=== PATIENT | male | born 1970 | race Two or more races ===

== ENCOUNTER 2018-02-28 23:03 | Emergency (ER) | payer SELFPAY ==
[2018-03-01] MEDS ORDERED: CIPROFLOXACIN HCL/DEXAMETH OTIC DROP 7.5 ML AU ONE (01:13)
--- NOTE | 2018-03-01 01:39 | RADIOLOGY REPORT (SQ) ---
EXAM DESCRIPTION: XR CHEST 2 VIEWS COMPLETED DATE/TME: 03/01/2018 01:07 CLINICAL HISTORY: shortness of breath COMPARISON: 04/21/2016 FINDINGS: Frontal and lateral views of the chest. Tortuosity of the thoracic aorta. Heart is not enlarged. No consolidation, pneumothorax, or pleural effusion. Degenerative change of the spine. Upper abdominal soft tissues are unremarkable. IMPRESSION: 1. No acute pulmonary process identified.
--- NOTE | 2018-03-01 02:23 | ER Document Report ---
ED ENT - General Chief Complaint: Ear Pain Stated Complaint: SHORTNESS OF BREATH Time Seen by Provider: 03/01/18 00:32 Mode of Arrival: Ambulatory Information source: Patient Notes: Patient presents to emergency department with chief complaint of left ear pain and shortness of breath. Patient reports that the left ear pain has been ongoing for approximately 2 days, patient reports that he has been in a swimming pool lately. Patient reports that the shortness of breath is intermittent, denies any cough or fever. TRAVEL OUTSIDE OF THE [place] IN LAST 30 DAYS: No - Related Data Allergies/Adverse Reactions: Penicillins Allergy (Verified 04/28/16 03:14) ibuprofen Adverse Reaction (Verified 04/21/16 10:24) Past Medical History - General Information source: Patient - Social History Smoking Status: Current Every Day Smoker Frequency of alcohol use: None Drug Abuse: None Family History: Arthritis, CAD, CVA, DM, Hyperlipidemia, Hypertension, Malignancy, Other - Lymphoma and his mother who is Patient has suicidal ideation: No Patient has homicidal ideation: No - Past Medical History Cardiac Medical History: Denies: Hx Congestive Heart Failure, Hx Coronary Artery Disease, Hx DVT, Hx Heart Attack, Hx Hypercholesterolemia, Hx Hypertension, Hx Pulmonary Embolism Renal/ Medical History: Denies: Hx Peritoneal Dialysis GI Medical History: Denies: Hx Cirrhosis, Hx Gastroesophageal Reflux Disease, Hx Hepatitis Musculoskeletal Medical History: Reports Hx Arthritis Psychiatric Medical History: Denies: Hx Depression Infectious Medical History: Denies: Hx Hepatitis Past Surgical History: Reports: Hx Gastric Bypass Surgery, Hx Orthopedic Surgery - Surgery to right wrist for gangrene infection., Hx Vascular Surgery - surgery to remove a IV - Immunizations Hx Diphtheria, Pertussis, Tetanus Vaccination: Yes - 2015 according to patient Review of Systems - Review of Systems Constitutional: No symptoms reported EENT: See HPI Cardiovascular: No symptoms reported Respiratory: See HPI Gastrointestinal: No symptoms reported Genitourinary: No symptoms reported Male Genitourinary: No symptoms reported Musculoskeletal: No symptoms reported Skin: No symptoms reported Hematologic/Lymphatic: No symptoms reported Neurological/Psychological: No symptoms reported Physical Exam - Vital signs Vitals: Temp Pulse Resp BP Pulse Ox 98.6 F 69 18 130/87 H 97 02/28/18 23:35 02/28/18 23:35 02/28/18 23:35 02/28/18 23:35 02/28/18 23:35 - Notes Notes: PHYSICAL EXAMINATION: GENERAL: Well-appearing, well-nourished and in no acute distress. HEAD: Atraumatic, normocephalic. EYES: Pupils equal round and reactive to light, extraocular movements intact, sclera anicteric, conjunctiva are normal. ENT: Nares patent, oropharynx clear without exudates. Moist mucous membranes. Erythema and swelling noted to left ear canal, mild erythema to right ear canal. NECK: Normal range of motion, supple without lymphadenopathy LUNGS: Breath sounds clear to auscultation bilaterally and equal. No wheezes rales or rhonchi. HEART: Regular rate and rhythm without murmurs Musculoskeletal: Normal range of motion, no pitting or edema. No cyanosis. NEUROLOGICAL: Cranial nerves grossly intact. Normal speech, normal gait. Normal sensory, motor exams PSYCH: Normal mood, normal affect. SKIN: Warm, Dry, normal turgor, no rashes or lesions noted. Course - Re-evaluation Re-evalutation: Patient with complaint of left ear pain and intermittent shortness of breath. Patient's vital signs are stable. Patient physical exam is unremarkable other than erythema and edema to left ear canal with mild erythema to right ear canal. Patient denies any other complaints. Chest x-ray is unremarkable. Will discharge patient on Ciprodex for otitis externa. - Vital Signs Vital signs: Temp Pulse Resp BP Pulse Ox 98.6 F 69 18 130/87 H 97 02/28/18 23:35 02/28/18 23:35 02/28/18 23:35 02/28/18 23:35 02/28/18 23:35 Discharge - Discharge Clinical Impression: Otitis externa Qualifiers: Otitis externa type: unspecified type Chronicity: acute Laterality: left Qualified Code(s): H60.502 - Unspecified acute noninfective otitis externa, left ear Condition: Stable Disposition: HOME, SELF-CARE Additional Instructions: OTITIS EXTERNA: You have otitis externa -- an infection of the outer ear canal. This can be very painful. It's sometimes called "swimmer's ear," because it often occurs after prolonged water exposure. Many things, such as earwax and dirt in the ear, can contribute to it. The usual treatment is antibiotic/antiinflammatory ear drops. Occasionally , a wick will be placed in the ear to draw in the medicine. If the infection is severe, an oral antibiotic may be prescribed. Pain medication is often needed. Avoid getting water in the ear. Outer ear infections often take longer to heal than you might expect. Some tenderness and ache in the ear may persist for about two weeks. See your physician if you fail to improve as expected. Call the doctor at once if you develop fever, increasing swelling (particularly if it makes your ear "poke out"), severe headache, stiff neck, or decreased hearing. USE OF EAR DROPS: Your ear drops won't do much good if they don't get all the way in. To help the ear drops penetrate all the way to the ear drum, use the following technique. If you encounter problems of any kind, notify the physician. (1) Lay your head sideways on a pillow. (2) Place the dropper tip just barely inside the ear canal, almost touching the bottom side of the canal. The liquid is tolerated better on the bottom of the canal. (3) Squeeze out the appropriate amount of medicine, and remove the dropper. (4) Grab the back of the ear (just behind the ear canal) between your index finger and thumb. (5) Tug up, then let the ear drop back. Repeat several times. This pumps the medicine down. (6) Wait five minutes, then place a cotton ball in the ear canal to catch and hold the medicine. CIPROFLOXACIN: You have been given an antibacterial agent, ciprofloxacin (Cipro). This medicine is not related to the penicillins, sulfas, cephalosporins, or tetracyclines. It is often given to patients who are allergic to these drugs. It has been chosen for you either because other drugs are not appropriate, or because of the nature of your problem. Cipro should not be taken with antacids, as these can decrease its effectiveness. It can be taken without regard to meals. Although Cipro is usually well-tolerated, common side effects can include nausea and diarrhea. Contact your doctor if you experience any unusual symptoms while on this medication, such as joint pain or swelling, shortness of breath, wheezing, faintness, or hives. FOLLOW-UP CARE: If you have been referred to a physician for follow-up care, call the physician s office for an appointment as you were instructed or within the next two days. If you experience worsening or a significant change in your symptoms, notify the physician immediately or return to the Emergency Department at any time for re-evaluation. Referrals: [facility] [Provider Group] - Follow up as needed
[2018-03-01 03:36] LABS: ABSOLUTE BASOPHILS # (AUTO) 0.1 10^3/uL (0.0-0.2); ABSOLUTE EOSINOPHILS # (AUTO) 0.5 10^3/uL (0.0-0.6); ABSOLUTE LYMPHOCYTES (AUTO) 2.7 10^3/uL (0.5-4.7); ABSOLUTE MONOCYTES (AUTO) 0.7 10^3/uL (0.1-1.4); BASOPHILS % (AUTO) 1.1 % (0-2); EOSINOPHILS % (AUTO) 6.6 % (0-6); HEMATOCRIT 39.4 % (37.9-51.0); LYMPHOCYTES % (AUTO) 38.8 % (13-45); MEAN CORPUSCULAR HEMOGLOBIN 28.2 pg (27.0-33.4); MEAN CORPUSCULAR VOLUME 85 fl (80-97); MONOCYTES % (AUTO) 10.2 % (3-13); PLATELET COUNT 299 10^3/uL (150-450); RED BLOOD COUNT 4.61 10^6/uL (4.35-5.55); RED CELL DISTRIBUTION WIDTH 16.1 % (11.5-14.0); SEGMENTED NEUTROPHILS % (AUTO) 43.3 % (42-78); TOTAL CELLS COUNTED % (AUTO) 100 %; WHITE BLOOD COUNT 6.9 10^3/uL (4.0-10.5)
[2018-03-01 03:45] LABS: APPEARANCE,URINE CLEAR; BILIRUBIN,URINE NEGATIVE (NEGATIVE); COLOR,URINE YELLOW; GLUCOSE, URINE NEGATIVE (NEGATIVE); KETONES,URINE 20 mg/dL (NEGATIVE); LEUKOCYTE ESTERASE,URINE NEGATIVE (NEGATIVE); NITRITE,URINE NEGATIVE (NEGATIVE); PROTEIN,URINE NEGATIVE (NEGATIVE); URINE SPECIFIC GRAVITY 1.023
[2018-03-01 03:46] LABS: ALANINE AMINOTRANSFERASE 31 U/L (21-72); ALBUMIN 3.7 g/dL (3.5-5.0); ALKALINE PHOSPHATASE 44 U/L (38-126); ANION GAP 12 (5-19); ASPARTATE AMINO TRANSFERASE 30 U/L (17-59); BILIRUBIN,DIRECT 0.3 mg/dL (0.0-0.4); BILIRUBIN,TOTAL 0.8 mg/dL (0.2-1.3); BLOOD UREA NITROGEN 13 mg/dL (7-20); CARBON DIOXIDE 26 mmol/L (22-30); CHLORIDE 104 mmol/L (98-107); GLUCOSE 91 mg/dL (75-110); POTASSIUM 3.5 mmol/L (3.6-5.0); SODIUM 142.4 mmol/L (137-145); TOTAL PROTEIN 6.5 g/dL (6.3-8.2)
[2018-03-01 03:47] LABS: ACETAMINOPHEN < 10 ug/mL (10-30); ALCOHOL < 10 mg/dL (NONE DETECTED); SALICYLATE < 1.0 mg/dL (2.0-20.0)
--- NOTE | 2018-03-01 04:21 | ER Document Report ---
ED Psych Disorder / Suicide - General Mode of Arrival: Ambulatory TRAVEL OUTSIDE OF THE [place] IN LAST 30 DAYS: No <BUBBA LLANES - Last Filed: 03/01/18 07:02> <HELEN SUTTON - Last Filed: 03/01/18 17:52> - General Chief Complaint: Suicidal Ideation Stated Complaint: SHORTNESS OF BREATH Time Seen by Provider: 03/01/18 00:32 Notes: Patient is a 47-year-old male who presents to the emergency department immediately after being discharged with complaints of suicidal ideations. Patient had checked into our department and was seen for left ear pain and shortness of breath. Patient was discharged with a diagnosis of otitis externa. On discharge patient appeared very unhappy that he was being sent home , began raising his voice and shouting out at the nurse that if we sent him home he was going to kill himself. During initial visit and examination patient made no reference to any psychiatric complaints and in fact denied any additional complaints when specifically asked. (BUBBA LLANES) - Related Data Allergies/Adverse Reactions: Penicillins Allergy (Verified 04/28/16 03:14) ibuprofen Adverse Reaction (Verified 04/21/16 10:24) Past Medical History - General Information source: Patient - Social History Smoking Status: Current Every Day Smoker Frequency of alcohol use: None Drug Abuse: None Family History: Arthritis, CAD, CVA, DM, Hyperlipidemia, Hypertension, Malignancy, Other - Lymphoma and his mother who is Patient has suicidal ideation: No Patient has homicidal ideation: No - Past Medical History Cardiac Medical History: Denies: Hx Congestive Heart Failure, Hx Coronary Artery Disease, Hx DVT, Hx Heart Attack, Hx Hypercholesterolemia, Hx Hypertension, Hx Pulmonary Embolism Renal/ Medical History: Denies: Hx Peritoneal Dialysis GI Medical History: Denies: Hx Cirrhosis, Hx Gastroesophageal Reflux Disease, Hx Hepatitis Musculoskeletal Medical History: Reports Hx Arthritis Psychiatric Medical History: Denies: Hx Depression Infectious Medical History: Denies: Hx Hepatitis Past Surgical History: Reports: Hx Gastric Bypass Surgery, Hx Orthopedic Surgery - Surgery to right wrist for gangrene infection., Hx Vascular Surgery - surgery to remove a IV - Immunizations Hx Diphtheria, Pertussis, Tetanus Vaccination: Yes - 2015 according to patient <BUBBA LLANES - Last Filed: 03/01/18 07:02> Review of Systems - Review of Systems Constitutional: No symptoms reported EENT: See HPI Cardiovascular: No symptoms reported Respiratory: No symptoms reported Gastrointestinal: No symptoms reported Genitourinary: No symptoms reported Male Genitourinary: No symptoms reported Musculoskeletal: No symptoms reported Skin: No symptoms reported Hematologic/Lymphatic: No symptoms reported Neurological/Psychological: See HPI <BUBBA LLANES - Last Filed: 03/01/18 07:02> Physical Exam <BUBBA LLANES - Last Filed: 03/01/18 07:02> <HELEN SUTTON - Last Filed: 03/01/18 17:52> - Vital signs Vitals: Temp Pulse Resp BP Pulse Ox 98.6 F 69 18 130/87 H 97 02/28/18 23:35 02/28/18 23:35 02/28/18 23:35 02/28/18 23:35 02/28/18 23:35 - Notes Notes: PHYSICAL EXAMINATION: GENERAL: Well-appearing, well-nourished and in no acute distress. HEAD: Atraumatic, normocephalic. EYES: Pupils equal round and reactive to light, extraocular movements intact, sclera anicteric, conjunctiva are normal. ENT: Nares patent, oropharynx clear without exudates. Moist mucous membranes. Erythema and swelling noted to left ear canal, mild erythema to right ear canal. NECK: Normal range of motion, supple without lymphadenopathy LUNGS: Breath sounds clear to auscultation bilaterally and equal. No wheezes rales or rhonchi. HEART: Regular rate and rhythm without murmurs Musculoskeletal: Normal range of motion, no pitting or edema. No cyanosis. NEUROLOGICAL: Cranial nerves grossly intact. Normal speech, normal gait. Normal sensory, motor exams PSYCH: Normal mood, normal affect, calm and cooperative. SKIN: Warm, Dry, normal turgor, no rashes or lesions noted. (BUBBA LLANES) Course - Laboratory Result Diagrams: 03/01/18 03:06 03/01/18 03:06 <BUBBA LLANES - Last Filed: 03/01/18 07:02> - Laboratory Result Diagrams: 03/01/18 03:06 03/01/18 03:06 <HELEN SUTTON - Last Filed: 03/01/18 17:52> - Re-evaluation Re-evalutation: Patient decided to check back in to be seen for his suicidal ideations. Patient was yelling out in the lobby "my blood will be on your hands" as provider and charge nurse and were talking to him about his new complaint of suicidal ideations. Patient was just discharged in stable condition with a left otitis externa is no mention of any psychiatric complaints. Upon arrival to room 44, patient initially screamed angrily at the charge nurse, then proceeded to ask for something to eat by his primary nurse and did cooperate in allowing for blood in urine for the psychiatric workup. On reevaluation of patient, patient is resting in room 44 with eyes closed and snoring respirations. Patient awoken to ask some more specific questions on his psychiatric complaint tonight in which patient denies any homicidal ideations, reports suicidal thoughts, when asked if he has a plan patient states "no nothing like that I just have a lot of stress going on". Patient then rolled back over to go to sleep. Patient continues to rest with no distress noted. All labs are back unremarkable for any acute pathology. Patient is medically cleared at this time , will be seen by psychiatric provider this morning. (BUBBA LLANES) - Vital Signs Vital signs: Temp Pulse Resp BP Pulse Ox 98.1 F 56 L 16 119/73 100 03/01/18 10:19 03/01/18 10:19 03/01/18 10:19 03/01/18 10:19 03/01/18 10:19 - Laboratory Laboratory results interpreted by me: 03/01/18 03/01/18 03/01/18 03:06 03:06 03:06 Hgb 13.0 L RDW 16.1 H Eosinophils % 6.6 H Potassium 3.5 L Urine Ketones 20 H Urine Urobilinogen 4.0 H Salicylates < 1.0 L Acetaminophen < 10 L Discharge <BUBBA LLANES - Last Filed: 03/01/18 07:02> <HELEN SUTTON - Last Filed: 03/01/18 17:52> - Discharge Clinical Impression: Resolved suicidal ideation Otitis externa Qualifiers: Otitis externa type: unspecified type Chronicity: acute Laterality: left Qualified Code(s): H60.502 - Unspecified acute noninfective otitis externa, left ear Condition: Stable Disposition: HOME, SELF-CARE Additional Instructions: Suicidal Ideation Suicidal ideation is a common medical term for thoughts about suicide, which may be as detailed as a formulated plan, without the suicidal act itself. Although most people who undergo suicidal ideation do not commit suicide, some go on to make suicide attempts. The range of suicidal ideation varies greatly from fleeting to detailed planning, role playing, and unsuccessful attempts. While thoughts about suicide are common, most people do not carry out serious actions to commit suicide. However, based upon your evalutation and discussion with you, we believe you are currently at risk to act upon your thoughts of suicide. Therefore, you will be admitted to a facility for inpatient care. OTITIS EXTERNA: You have otitis externa -- an infection of the outer ear canal. This can be very painful. It's sometimes called "swimmer's ear," because it often occurs after prolonged water exposure. Many things, such as earwax and dirt in the ear, can contribute to it. The usual treatment is antibiotic/antiinflammatory ear drops. Occasionally , a wick will be placed in the ear to draw in the medicine. If the infection is severe, an oral antibiotic may be prescribed. Pain medication is often needed. Avoid getting water in the ear. Outer ear infections often take longer to heal than you might expect. Some tenderness and ache in the ear may persist for about two weeks. See your physician if you fail to improve as expected. Call the doctor at once if you develop fever, increasing swelling (particularly if it makes your ear "poke out"), severe headache, stiff neck, or decreased hearing. USE OF EAR DROPS: Your ear drops won't do much good if they don't get all the way in. To help the ear drops penetrate all the way to the ear drum, use the following technique. If you encounter problems of any kind, notify the physician. (1) Lay your head sideways on a pillow. (2) Place the dropper tip just barely inside the ear canal, almost touching the bottom side of the canal. The liquid is tolerated better on the bottom of the canal. (3) Squeeze out the appropriate amount of medicine, and remove the dropper. (4) Grab the back of the ear (just behind the ear canal) between your index finger and thumb. (5) Tug up, then let the ear drop back. Repeat several times. This pumps the medicine down. (6) Wait five minutes, then place a cotton ball in the ear canal to catch and hold the medicine. CIPROFLOXACIN: You have been given an antibacterial agent, ciprofloxacin (Cipro). This medicine is not related to the penicillins, sulfas, cephalosporins, or tetracyclines. It is often given to patients who are allergic to these drugs. It has been chosen for you either because other drugs are not appropriate, or because of the nature of your problem. Cipro should not be taken with antacids, as these can decrease its effectiveness. It can be taken without regard to meals. Although Cipro is usually well-tolerated, common side effects can include nausea and diarrhea. Contact your doctor if you experience any unusual symptoms while on this medication, such as joint pain or swelling, shortness of breath, wheezing, faintness, or hives. FOLLOW-UP CARE: If you have been referred to a physician for follow-up care, call the physician s office for an appointment as you were instructed or within the next two days. If you experience worsening or a significant change in your symptoms, notify the physician immediately or return to the Emergency Department at any time for re-evaluation. Referrals: [facility] [Provider Group] - Follow up as needed
[2018-03-01 05:55] LABS: URINE BARBITURATES SCREEN NEGATIVE; URINE BENZODIAZEPINES SCREEN NEGATIVE; URINE COCAINE SCREEN NEGATIVE; URINE MARIJUANA (THC) SCREEN UNCONFIRMED POSITIVE; URINE METHADONE SCREEN NEGATIVE; URINE PHENCYCLIDINE SCREEN NEGATIVE
--- NOTE | 2018-03-01 07:53 | EKG REPORT ---
SEVERITY:- BORDERLINE ECG - SINUS RHYTHM BORDERLINE LEFT AXIS DEVIATION BORDERLINE T ABNORMALITIES, INFERIOR LEADS : Confirmed by: Roz Taveras MD 01-Mar-2018 07:52:19
--- NOTE | 2018-03-01 09:25 | ER Document Report ---
Doctor's Note Notes: 03/01/18 09:24 Patient is a 47-year-old male who is seen and evaluated and discharged for otitis externa who then presents after discharge being upset because he did not want to go home. He was stating suicidal ideations. He has no plan. Patient is already being treated for the previous visit for his otitis externa. No mastoid swelling or tenderness. Patient denies any auditory or visual hallucinations. We are waiting for psychology evaluation regarding suicidal ideations. Vital signs are stable. Labs as recorded. 03/01/18 17:46 Patient is very calm and cooperative at this time. We have given the patient is otitis externa eardrops. Still no mastoid tenderness or swelling. Patient is seen and been evaluated by the psychology services who do not believe that the patient requires any inpatient IVC psychiatric evaluation at this time. Patient denies any suicidal ideations. They have provided mobile crisis outpatient resources. Patient understands to return with any new or worrisome thoughts and to follow-up with his doctor regarding his ear.
[2018-03-01] MEDS: CIPROFLOXACIN HCL/DEXAMETH OTIC DROP 7.5 ML AS SCH ×2 (13:40→17:36)
[2018-03-01 18:12] VITALS: BP 115/70
== END 2018-03-01 18:12 | disposition home or self-care (01) ==
LOC: ER 23:03
DX: R45.851 Suicidal ideations (principal); H60.502 Unspecified acute noninfective otitis externa, left ear; F17.200 Nicotine dependence, unspecified, uncomplicated; Z88.0 Allergy status to penicillin; Z98.84 Bariatric surgery status
CPT/HCPCS: 93005; 99285; 36415; 80307 ×4; 85025; 80053; 81001; 71046; 93010; J3490